=== PATIENT | female | born 1980 | race Caucasian/White ===

== ENCOUNTER → 2023-05-21 | Outpatient (CLI) | payer BC ==
--- NOTE | 2023-05-21 11:17 | MM ---
Reason for Exam: Additional evaluation requested from prior study. Last mammogram was performed 3 year(s) and 1 month(s) ago. Indicated Problems: Pain of the left side (Focal) : intermittent pain lat side...on and off. Patient History: Menarche at age 15. First Full-Term at age 32. Late child-bearing (after 30). Premenopausal. Patient has history of breast feeding. Paternal grandmother had breast cancer at or over age 50. Last menstrual period: 05/08/2023 Risk Values: Beth 5 year model risk: 0.8%. NCI Lifetime model risk: 13.6%. Prior Study Comparison: 04/30/2020 Bilateral MG 3D screening mammo w/cad, Unknown. Tissue Density: The breast tissue is heterogeneously dense. This may lower the sensitivity of mammography. Findings: Analyzed By CAD. Pattern appears stable. Surgical markers are within the left breast upper outer posterior aspect. Correlate with the prior biopsy results which are not available at this location. Within the posterior 12:00 position right breast is a 0.7 cm oval density with partially obscured margins located 6 cm from the nipple. Additional evaluation with ultrasound is recommended. No suspicious groups of microcalcifications, spiculated or lobular masses, architectural distortion or other secondary signs of malignancy are mammographically apparent. Overall Assessment: Incomplete: need additional imaging evaluation, BI-RAD 0 Management: Diagnostic Breast Ultrasound of the right breast. A negative mammogram report should not preclude additional follow up of suspicious palpable abnormalities. Patient should continue monthly self breast exam. A clinical breast exam by your physician is recommended on an annual basis and results should be correlated with mammographic findings. Electronically signed and approved by: Yuri Paiz D.O. Radiologis
--- NOTE | 2023-05-21 14:15 | USB ---
Patient History: Menarche at age 15. First Full-Term at age 32. Late child-bearing (after 32). Premenopausal. Patient has history of breast feeding. Paternal grandmother had breast cancer at or over age 50. Risk Values: Beth 5 year model risk: 0.8%. NCI Lifetime model risk: 13.6%. Technique: Method: Targeted. Prior Study Comparison: 04/30/2020 Bilateral MG 3D screening mammo w/cad, Unknown. Findings: The upper section of the breast of the right breast, the axilla of the right breast and the retroareolar of the right breast were scanned. There is a solid hypoechoic lesion with some internal vascularity at the 12:00 position 5 cm nipple. This measures 0.8 x 1.0 x 0.8 cm.. Overall Assessment: Suspicious, BI-RAD 4 Management: Ultrasound Core Biopsy of the right breast. A clinical breast exam by your physician is recommended on an annual basis and results should be correlated with mammographic findings. This exam should not preclude additional follow-up of suspicious palpable abnormalities. Results were given to the patient verbally at the time of exam. Electronically signed and approved by: Yuri Paiz D.O. Radiologis
== END | disposition home or self-care (01) ==
LOC: RADMAMWWP 10:21
PROVIDERS: ATTEND Internal Medicine
DX: R92.333 Mammographic heterogeneous density, bilateral breasts (principal); Z80.3 Family history of malignant neoplasm of breast
CPT/HCPCS: 77062; 77066

== ENCOUNTER → 2023-06-04 | Day surgery (SDC) | payer BC ==
--- NOTE | 2023-06-11 11:19 | MM ---
Reason for Exam: Post Procedure Mammogram. Last screening mammogram was performed less than 1 month ago. Patient History: Menarche at age 15. First Full-Term at age 32. Late child-bearing (after 30). Premenopausal. Patient has history of breast feeding. Paternal grandmother had breast cancer at or over age 50. Risk Values: Beth 5 year model risk: 0.8%. NCI Lifetime model risk: 13.6%. Prior Study Comparison: 04/30/2020 Bilateral MG 3D screening mammo w/cad, Unknown. 05/21/2023 Bilateral MG 3D diag mammo w/cad [facility], [facility]. Tissue Density: Right: The breast tissue is heterogeneously dense. This may lower the sensitivity of mammography. Pathology Description: Location: 12 o'clock. Marker Left Behind. Needle Type: Celero Cores: 4 Gauge: 12 The procedure of ultrasound guided core biopsy was explained to the patient. Benefits, alternatives, and risks were discussed. An informed consent was then obtained. The patient was placed in supine positioning for imaging and for the procedure. The overlying skin was prepped and draped in usual sterile fashion. Lidocaine buffered with bicarbonate was used as anesthetic into the skin and subcutaneous tissue up to area of concern in the 12:00 right breast. Under ultrasound guidance, a 12-gauge vacuum assisted biopsy gun device was used to obtain 4 core samples. Following this, a biopsy clip was left in lesion. The patient tolerated the procedure well without any immediate complication. The patient was kept in the radiology department for short stay after the procedure and then discharged home in stable condition. Postprocedure mammogram: The patient was transferred to mammography for physician ordered post procedure mammogram for clip placement verification. Impression: Successful, uncomplicated ultrasound guided core biopsy of area of concern in the right 12:00 breast, full pathology results to follow. Pathology Results: Result: Benign, Fibroadenoma. RIGHT BREAST, 5 CMFN, NEEDLE CORE BIOPSY: Fibroadenoma. Overall Assessment: Benign Assessment: MG diagnostic mammo RT wo CAD - Right: Benign, BI-RAD 2. Management: Diagnostic Breast Ultrasound of the right breast in 6 months. Electronically signed and approved by: Pelon Miguel M.D. Radiologis
== END ==
LOC: RADUSWWP 12:13
PROVIDERS: ATTEND Internal Medicine
DX: D24.1 Benign neoplasm of right breast (principal)
CPT/HCPCS: 88305; 77065; 19083; A4648

== ENCOUNTER → 2024-08-08 | Outpatient (CLI) | payer BC ==
--- NOTE | 2024-08-08 12:02 | MM ---
Reason for Exam: Screening (asymptomatic). Last mammogram was performed 1 year(s) and 2 month(s) ago. Patient History: Menarche at age 15. First Full-Term at age 32. Late child-bearing (after 30). Premenopausal. Patient has history of breast feeding. 06/04/2023, Benign US biopsy breast VAD RT on the right side. Paternal grandmother had breast cancer at or over age 50. Risk Values: Beth 5 year model risk: 1.3%. NCI Lifetime model risk: 16.3%. Prior Study Comparison: 04/30/2020 Bilateral MG 3D screening mammo w/cad, Unknown. 05/21/2023 Bilateral MG 3D diag mammo w/cad [facility], [facility]. 06/04/2023 Right MG diagnostic mammo RT wo CAD, [facility]. Tissue Density: The breasts are heterogeneously dense, which may obscure small masses. Findings: Analyzed By CAD. Chronic bilateral nodularity with one microclip right breast and 2 microclips left breast from prior biopsies. There is no suspicious group of microcalcifications or new suspicious mass in either breast. Overall Assessment: Benign, BI-RAD 2 Management: Screening Mammogram of both breasts in 1 year. Patient should continue monthly self-breast exams. A clinical breast exam by your physician is recommended on an annual basis. This exam should not preclude additional follow-up of suspicious palpable abnormalities. Note on Beth scores and lifetime risk: 1. A Beth score greater than 3% is considered moderate risk. If this is the case, consider specialist referral to assess eligibility for a risk reducing agent. 2. If overall lifetime risk for the development of breast cancer is 20% or higher, the patient may qualify for future screening with alternating mammogram and breast MRI. [facility], , 08/08/2024 11:59 AM. Electronically signed and approved by: Marlon Najera M.D. Radiologist
== END | disposition home or self-care (01) ==
LOC: RADMAMWWP 08:35
PROVIDERS: ATTEND Obstetrics & Gynecology
DX: Z12.31 Encounter for screening mammogram for malignant neoplasm of breast (principal); R92.333 Mammographic heterogeneous density, bilateral breasts; Z80.3 Family history of malignant neoplasm of breast
CPT/HCPCS: 77063; 77067